=== PATIENT | male | born 1975 | race Caucasian/White ===

== ENCOUNTER 2016-09-23 23:43 | Emergency (ER) | payer OTHER ==
[~2016-09-23] VITALS: Ht 188 cm; Wt 86.4 kg
[2016-09-23 23:47] VITALS: BP 163/93; PULSE 91; RESP 18; O2SAT 93
--- NOTE | 2016-09-24 00:13 | ED.REPORT ---
HPI-Headache Date of Service Sep 24, 2016 ED Provider: Holly Benjamin MD This is a 41 year old male with a history of COPD and asthma presenting to the ED complaining of left sided facial swelling that began 18 hours ago. Pt states he first developed left sided stabbing head pain 3 days ago. The pain is progressively worsening and he now has left sided facial swelling from the eye to the jaw and L ear. Associated symptoms include nausea. Denies fever, chills, vomiting, abdominal pain, voice changes, pain with extraocular movement, difficulty breathing or swallowing. Nursing Notes Stated Complaint: PAINFUL SWELLING AND REDNESS ON LFT SIDE OF FACE Chief Complaint: General Complaint Nursing Notes Reviewed: Yes Allergies: Coded Allergies: ibuprofen (Verified Allergy, Unknown, 09/23/16) pseudoephedrine (Verified Allergy, Unknown, 09/23/16) Scheduled Valacyclovir (Valacyclovir) 1,000 Mg Tablet 1,000 MG PO TID Scheduled PRN Hydrocodone-Acetaminophen 5-325 mg (Hydrocodone-Acetaminophen 5-325 mg) 1 Each Tablet 1 TABLET PO Q4H PRN PRN For Pain General Time Seen by MD: 00:08 Chief Complaint Other Hx Obtained From: Patient Arrived By: Walk-in Sudden in Onset?: Yes Onset Occurred: 2 days ago Symptom Duration: Since onset Severity: Current: Mild Pertinent Negative: Pt denies other symptoms Recent Healthcare: No recent doctor visit, No recent hospitalization Similar Sx Previous: No Risk-Headache )( IC Mass Risk Stratification RF Statements: No risk factors Past Medical History Past Medical History Ankylosing spondylitis Chronic back pain Reports: COPD Past Surgical History Denies Ambulatory Status Independent Review of Systems Constitutional: Denies: Chills, Fever GI: Reports: Nausea, Denies: Abdominal pain, Vomiting Neurologic: Reports: Headache Complete sys rev & neg: except as marked. Physical Exam Initial Vital Signs Vital Signs (First) Date Time Temp Pulse Resp B/P Pulse Ox O2 Delivery O2 Flow Rate FiO2 09/23/16 23:47 36.8 91 18 163/93 93 Room Air Initial VS: Reviewed Respiratory: Breath sounds normal, Clear to auscultation, No respiratory distress Cardiovascular: Regular rate & rhythm, Heart sounds normal, Intact distal pulses Abdomen / GI: Soft, Non-tender, No guarding, No rebound, No distention Extremities: Vascular intact, Neuro intact, No swelling, No tenderness Skin: Warm, Dry, No cyanosis Psychiatric: Mood/affect normal, Behavior normal, Normal thought content General/Constitutional: Awake, Alert Head / Eyes: PERRL, EOMI no dendritic lesions on cornea Neck: No meningismus Neurologic: Oriented X3, Speech NL, No motor deficits, No sensory deficits, CN II - XII intact, Cerebellar NL ENT: Airway patent On L side of forehead there are several erythematous lesiosn with clear vesicles on top, no Hall's sign. Large posterior auricular lymph nodes with tenderness to palpation under L mandibular angle without loss of mandibular angle. Interpretation & Diagnostics CT NECK CONCLUSION:small, nonenlarged, nonspecific lymph nodes, may be reactive; although neoplasm difficult to entirely exclude. emphysema. RADIOLOGIST: Lab Results Interpretation Result Diagram: 09/24/163409/24/1634 Test 09/24/16 00:35 White Blood Count 5.9th/mm3 (3.8-10.1) Red Blood Count 4.90mil/mm3 (4.40-5.80) Hemoglobin 13.8g/dL (13.8-17.2) Hematocrit 41.9% (41.0-50.0) Mean Corpuscular Volume 85.5fL (81-100) Mean Corpuscular Hemoglobin 28.2pg (27.0-35.0) Mean Corpuscular Hemoglobin Concent 32.9% (32.0-37.0) Red Cell Distribution Width 15.8% (12.3-15.4) Platelet Count 365bil/L (150-400) Neutrophils (%) (Auto) 65.3% (40-74) Lymphocytes (%) (Auto) 18.1% (14-46) Monocytes (%) (Auto) 14.7% (4-12) Eosinophils (%) (Auto) 1.0% (0-5) Basophils (%) (Auto) 0.7% (0-3) Sodium Level 138mEq/L (134-144) Potassium Level 4.4mEq/L (3.5-5.2) Chloride Level 100mEq/L (97-108) Carbon Dioxide Level 26mmol/L (18-29) Blood Urea Nitrogen 17mg/dL (6-24) Creatinine 0.62mg/dL (0.76-1.27) Estimat Glomerular Filtration Rate 151mL/min (>59) Glucose Level 91mg/dL (60-99) Calcium Level 9.1mg/dL (8.5-10.1) Total Bilirubin 0.4mg/dL (0.0-1.2) Aspartate Amino Transf (AST/SGOT) 17U/L (0-50) Alanine Aminotransferase (ALT/SGPT) 15U/L (0-44) Alkaline Phosphatase 69U/L (25-150) Total Protein 7.1g/dL (6.4-8.4) Albumin 4.4g/dL (3.4-5.0) Hold Varghese Top Tube Received (Received) Re-Eval/Medical Decision Med Decision/Clinical Course 41-year-old male with past medical history of ankylosing spondylolysis who, until recently, was taking sulfasalazine here with rash to his forehead without vision changes. Differential diagnosis includes but is not limited to herpes zoster versus zoster ophthalmicus versus lymphadenopathy versus other infectious process. Exam is most consistent with herpes zoster. There are no dendrites on fluorescein exam. Patient was given his first dose of Valtrex in the emergency department, and discharged with same. He has been referred to ophthalmology and told to call first thing in the morning for further ophthalmologic evaluation. He does not want narcotic medications, though I did provide him a prescription in case his pain is too great. He understands the gravity of the situation and that he must call up the first thing in the morning. He is amenable to discharge at this time. Re-Evaluation/Progress : Time of Eval: 02:26 Re-Evaluation/Progress Note: Discussed lab and imaging results and plan for d/c, all questions addressed. Counseled Regarding: Diagnosis, Lab results, Need for follow-up, When/why to return to ED Discharge & Departure Impression: Primary Impression: Shingles Herpes zoster complications: without complications Qualified Code: B02.9 - Zoster without complications Disposition: Home Discharge Condition All VS Reviewed: Yes Condition: Stable Patient Instructions: Herpes Zoster (ED) Additional Instructions: Take valacyclovir as prescribed. Follow up with ophthalmology, call tomorrow to schedule an appointment. Return to the emergency department for any new or worsening symptoms Referrals: Aliya Amaro MD (PCP) Alen Gilbert MD Scribe Attestation Portions of this note were transcribed by Ivana Parson. I, Dr. Benjamin personally performed the history, physical exam and medical decision-making; I reviewed and confirmed the accuracy of the information in the transcribed note. Signed by: jennifer Barraza. 09/23/2016, 02:00. copies to: Alen Gilbert MD, Rebecca A MD Sep 24, 2016 00:13 IVANA PARSON Sep 24, 2016 00:15
[2016-09-24] MEDS ORDERED: 0.9% Sodium Chloride 1,000 ML IV ONE (00:30)
[2016-09-24] MEDS ORDERED: Tetracaine 0.5% 4 mL Ophthalmic Solution LEFT_EYE ONE (00:40)
[2016-09-24] MEDS ORDERED: Fluorescein 0.6 mg Ophthalmic Strip LEFT_EYE ONE (00:40)
[2016-09-24 00:47] LABS: BASOPHILS % (AUTO) 0.7 % (0-3); MONOCYTES % (AUTO) 14.7 % (4-12); Mean Corpuscular Hemoglobin 28.2 pg (27.0-35.0); Mean Corpuscular Volume 85.5 fL (81-100); NEUTROPHILS % (AUTO) 65.3 % (40-74); Platelet Count 365 bil/L (150-400)
[2016-09-24] MEDS ORDERED: VALA100026 PO (02:29)
[2016-09-24] MEDS ORDERED: HYDROcodone-APAP 5-325 mg Tablet PO ONE (02:30)
[2016-09-24] MEDS ORDERED: HYDR-4003 PO (02:30)
[2016-09-24 03:49] VITALS: BP 135/83; PULSE 93; RESP 18; O2SAT 94
--- NOTE | 2016-09-24 09:17 | DRSVH ---
PROCEDURE: CT NECK SOFT TISSUES WITH CONTRAST ([id number]) INDICATIONS: left posterior auricular swelling TECHNIQUE: After the administration of intravenous contrast, 3.0 mm axial sections acquired from the sella to th e aortic arch. Additional oblique axial 3.0 mm sections acquired through the pharynx. 3 mm thick co mani reformats were generated. For radiation dose reduction, the following was used: automated exp osure control. COMPARISON: None. FINDINGS: Image quality: Excellent. Lymph nodes: No enlarged lymph nodes seen throughout the neck. There are several prominent subcenti meter periparotid lymph nodes on the left. A cluster of left level IV cervical lymph node is seen mike suring up to 9 mm. Vessels: Visualized vasculature appears patent. Neck spaces: There is amorphous soft tissue posterior to the tongue base. The oropharynx, nasopharyn x, and pharynx demonstrate no mucosal lesions. The vocal cords, false vocal cords, pyriform sinuses, epiglottis, vallecula, and tongue base all appear normal. Extramucosal spaces appear unremarkable. Glands: The parotid glands are prominent bilaterally without discrete mass. Several subcentimeter pe riparotid lymph nodes are noted adjacent to the left parotid gland. The submandibular glands appear n ormal. Thyroid gland is normal. Miscellaneous: Visualized brain and orbits appear normal. Lung apices appear clear. Moderate emphy sema. Superficial soft tissues appear normal. Bones: No suspicious bony lesions. Visualized sinuses and mastoids appear unremarkable. IMPRESSION: 1. Slightly prominent left cervical lymph nodes. This finding is nonspecific and may be reactive. Rec ommend clinical followup and imaging followup if clinically indicated. 2. Amorphous soft tissue posterior to the tongue base which could be caused by phlegm but soft tissue mass cannot be excluded. Recommend direct visualization. 3. Moderate emphysema. Dictated by: Kj Chambers M.D. on 09/24/2016 at 9:07 Transcribed by: MAICO on 09/24/2016 at 9:17 Approved by: Kj Chambers M.D. on 09/24/2016 at 10:12
== END 2016-09-24 03:50 | disposition home or self-care (01) ==
LOC: SED 23:43
DX: B02.9 Zoster without complications (principal); J44.9 Chronic obstructive pulmonary disease, unspecified; G89.29 Other chronic pain; Z88.6 Allergy status to analgesic agent; Z88.8 Allergy status to other drugs, medicaments and biological substances
CPT/HCPCS: 36415; 70491; 80053; 85025; 96360; 99284; J7030; Q9967